=== PATIENT | male | born 1975 | race Caucasian/White ===

== ENCOUNTER 2016-08-27 15:14 | Emergency (ER) | payer BC ==
[~2016-08-27] VITALS: Ht 175.3 cm; Wt 81.5 kg
[~2016-08-27 15:14] MED LIST: PROM25TA5 PO
[2016-08-27 15:15] VITALS: BP 126/70; PULSE 77; RESP 16; TEMP 98.1; O2SAT 98
[2016-08-27] MEDS ORDERED: CLIN1CAP5 PO (15:42)
[2016-08-27] MEDS ORDERED: IBUP800T23 PO (15:42)
--- NOTE | 2016-08-27 15:43 | PD ---
HPI Chief Complaint: Lump, Cyst, Hernia Time Seen by Provider: 15:41 Travel History International Travel<30 days: No Contact w/Intl Traveler<30days: No Traveled to known affect area: No History of Present Illness HPI 41-year-old male presents emergency Department with complaint of an abscess to the back of his scalp 2 weeks. He saw his primary care provider and was given ciprofloxacin she's been taking for the entire 2 weeks with no improvement in symptoms. The abscess opened up today and started draining. Reports being up- to-date on his tetanus vaccination. Has taken ibuprofen for the pain also. Denies fever, chills, nausea, vomiting. Allergies to amoxicillin. No other modifying factors or associated signs and symptoms. PFSH Social History Alcohol Use: No Tobacco Use: No Substance Use: No Allergies-Medications (Allergen,Severity, Reaction): Coded Allergies: Amoxicillin (Verified Allergy, Mild, RASH, 08/27/16) Reported Meds & Prescriptions Reported Meds & Active Scripts Active Ibuprofen 800 Mg Tab 800 Mg PO Q6HR PRN Clindamycin (Clindamycin HCl) 150 Mg Cap 450 Mg PO Q6H 10 Days Phenergan 25 mg (Promethazine HCl) 25 Mg Tab 25 Mg PO Q6H PRN Review of Systems Except as stated in HPI: all other systems reviewed are Neg Physical Exam Narrative GENERAL: Well-nourished, well-developed male patient, in no acute distress; afebrile, nontoxic-appearing SKIN: There is an indurated area to the posterior scalp which measures about 3 cm in diameter. It is fluctuant and there is purulent drainage. There is a zone of inflammation around it but no lymphangitis. HEAD: Atraumatic. Normocephalic. EYES: Pupils equal and round. No scleral icterus. No injection or drainage. ENT: Mucosa pink and moist. Airway patent. NECK: Trachea midline. CARDIOVASCULAR: Regular rate. RESPIRATORY: No accessory muscle use. GASTROINTESTINAL: Rounded. MUSCULOSKELETAL: No obvious deformities. No clubbing. No cyanosis. No edema. NEUROLOGICAL: Awake and alert. Oriented 3. No obvious cranial nerve deficits. Motor grossly within normal limits. Normal speech. PSYCHIATRIC: Appropriate mood and affect; insight and judgment normal. Data Data Last Documented VS Vital Signs Date Time Temp Pulse Resp B/P Pulse Ox O2 Delivery O2 Flow Rate FiO2 08/27/16 15:15 98.1 77 16 126/70 98 Orders Wound Culture And Gram Stain (08/27/16 15:43) Lidocai-Epi 1%-1:100,000 Inj (Xylocaine- (08/27/16 15:45) MDM Medical Decision Making Medical Screen Exam Complete: Yes Emergency Medical Condition: Yes Medical Record Reviewed: Yes Differential Diagnosis Abscess, folliculitis, cellulitis Narrative Course 41-year-old male with abscess to his posterior scalp. See my procedure note for incision and drainage. Patient up-to-date on tetanus vaccination. Clindamycin and ibuprofen prescribed for home. Instructed patient to stop taking Cipro. Patient verbalizes understanding and agreement with treatment plan. Patient is medically cleared and stable for discharge. Discussed reasons to return to the emergency department. Instructed patient to follow up with primary care provider. Patient agrees with treatment plan. The patients vital signs are stable and the patient is stable for outpatient follow-up and treatment. Patient discharged home, stable and in no acute distress. Procedures Procedure Narrative INCISION AND DRAINAGE OF ABSCESS: The area was prepped and was sterilely draped. A subcutaneous wheal of 1% lidocaine with epinephrine with a total number 2 mL was used to anesthetize the area properly. A number 11 scalpel was used to make a 1 -cm incision across the area of the abscess. The abscess was drained, complex loculations were broken down, and irrigated with normal saline. Cultures were obtained. Sterile dressing applied. Diagnosis Primary Impression: Abscess of scalp Referrals: Primary Care Physician Patient Instructions: Abscess (ED), Abscess Follow-up (ED), Abscess Incision and Drainage (ED), General Instructions Departure Forms: Tests/Procedures, Work Release Enter return to work date: Aug 28, 2016 Additional Instructions: Complete full course of antibiotics; clindamycin is on the $4 list at [facility] otherwise try [facility] Warm compresses to the affected area Keep area clean and dry Ibuprofen or Tylenol as directed and as needed for pain and inflammation Follow-up with primary care provider Return to emergency department immediately with worsening of symptoms Med/Other Pt SpecificInfo: Prescription(s) given, Med Stopped Scripts Ibuprofen 800 Mg [id number] Mg PO Q6HR PRN (PAIN) #30 TAB Ref 0 Prov:Gin Schultz 08/27/16 Clindamycin 150 Mg [id number] Mg PO Q6H 10 Days Ref 0 Prov:Gin Schultz 08/27/16 Disposition: 01 DISCHARGE HOME Condition: Stable Gin Schultz Aug 27, 2016 15:43 Gin Schultz Aug 27, 2016 15:43
[2016-08-27] MEDS: LIDOCAINE 1%/EPINEPHrine 1:100,000 SOLN 20 ML VIAL INFIL ONE (15:50)
== END 2016-08-27 16:22 | disposition home or self-care (01) ==
LOC: NEPK 15:14
DX: L02.811 Cutaneous abscess of head [any part, except face] (principal)
CPT/HCPCS: 10060; 87070; 87205